=== PATIENT | female | born 1935 | race Caucasian/White ===

== ENCOUNTER 2022-12-02 09:03 | Outpatient (CLI) | payer MEDICARE | END 2022-12-02 09:04 | disposition home or self-care (01) | LOC: CSHRAD 09:03 | PROVIDERS: ATTEND Physician Assistant Medical | DX: Z87.19 Personal history of other diseases of the digestive system (principal); K59.00 Constipation, unspecified; E27.8 Other specified disorders of adrenal gland; D64.9 Anemia, unspecified; R31.29 Other microscopic hematuria; R10.31 Right lower quadrant pain; K57.10 Diverticulosis of small intestine without perforation or abscess without bleeding | CPT/HCPCS: 74250 ==